=== PATIENT | female | born 1990 | race Caucasian/White ===

== ENCOUNTER 2021-03-03 13:27 | Emergency (ER) | payer OTHER ==
[~2021-03-03] VITALS: Ht 152.4 cm; Wt 45.0 kg
[2021-03-03 13:48] VITALS: BP 103/60
== END 2021-03-03 16:35 | disposition home or self-care (01) ==
LOC: EMS 13:32
DX: Z11.1 Encounter for screening for respiratory tuberculosis (principal)
CPT/HCPCS: 71045; 99283